=== PATIENT | male | born 1960 | race Caucasian/White ===

== ENCOUNTER 2020-07-31 14:02 | Inpatient (IN) | payer OTHER, SELFPAY ==
[~2020-07-31] VITALS: Ht 175.3 cm; Wt 93.0 kg
[2020-07-31 14:39] VITALS: BP 161/89
--- NOTE | 2020-07-31 15:04 | NUR ---
PT TAKEN TO BED 4 VIA W/C.
--- NOTE | 2020-07-31 15:15 | NUR ---
BIBS FROM HOME WITH C/O RIGHT FOOT PAIN, SWELLING, ERYTHEMA THAT PT FIRST NOTICED YESTERDAY. FSBS 444 MG/DL @ TRIAGE. NKDA, PMH ASTHMA, DM, DIABETIC NEUROPATHY, HTN, BIPOLAR. A, A, O X 4, COOPERATIVE, PATIENT DOES NOT WANT TO BE ADMITTED BECAUSE HE HAS A DOG AT HOME AND NO ONE TO CARE FOR HIM. RESP EVEN AND UNLABORED, IN NAD, VVS HOB ELEVATED, MOVING ALL EXTS W/O DIFFICULTY AWAITING EVALUATION/EXAM BY MD, WILL CONTINUE TO MONITOR
[2020-07-31 15:26] LABS: BASOPHILS % (AUTO) 0.4 % (0.0-2.0); EOSINOPHILS # (AUTO) 0.1 K/uL (0-0.4); EOSINOPHILS % (AUTO) 0.9 % (0.0-4.0); HEMATOCRIT 37.4 % (36-52); HEMOGLOBIN 12.6 g/dL (12.0-18.0); LYMPHOCYTES # (AUTO) 1.2 K/uL (2.0-11.5); LYMPHOCYTES % (AUTO) 10.3 % (20.5-51.1); MEAN CORPUSCULAR HEMOGLOBIN 29 pg (27-31); MEAN CORPUSCULAR HGB CONC 34 g/dL (33-37); MEAN CORPUSCULAR VOLUME 87.6 fL (80-94); MONOCYTES # (AUTO) 0.8 K/uL (0.8-1.0); NEUTROPHILS # (AUTO) 9.8 K/uL (1.8-7.7); NEUTROPHILS % (AUTO) 81.4 % (42.2-75.2); PLATELET COUNT (AUTO) 236 K/uL (140-450); RED BLOOD CELL COUNT(AUTO) 4.27 MIL/uL (4.20-6.10); RED CELL DISTRIBUTION WIDTH 13.6 % (11.6-13.7)
[2020-07-31 15:48] LABS: ALBUMIN 3.5 g/dL (3.4-5.0); ANION GAP 11.5 (8-16); CARBON DIOXIDE 29.1 mmol/L (21-32); CREATININE 1.1 mg/dL (0.6-1.3); POTASSIUM 4.6 mmol/L (3.5-5.1); TOTAL BILIRUBIN 0.4 mg/dL (0.0-1.0)
[2020-07-31] MEDS ORDERED: MORPHINE SULFATE 4 MG/ML SYR IVP ONE (17:15)
[2020-07-31] MEDS ORDERED: cefTRIAXone 1,000 MG in DEXT 5% MINI-BAG PLUS 50 ML IV ONE (17:15)
[2020-07-31] MEDS ORDERED: BUS5 PO (17:20)
[2020-07-31] MEDS ORDERED: cefTRIAXone 1,000 MG VIAL ONE ×2 (17:20→21:06)
[2020-07-31] MEDS ORDERED: LANTUS SUBQ (17:20)
[2020-07-31] MEDS ORDERED: METF1000 PO (17:20)
[2020-07-31] MEDS ORDERED: THO25 PO (17:21)
--- NOTE | 2020-07-31 19:30 | NUR ---
REPORT RECIEVED FROM AGENCY RN. TRANSFER OF CARE AT THIS TIME.
--- NOTE | 2020-07-31 19:31 | NUR ---
Detailed report given to IDRIS Cali for transfer of care Questions answered, orders and meds reviewed
--- NOTE | 2020-07-31 20:00 | NUR ---
FRITZ SWAB COLLECTED AND SENT TO LAB
[2020-07-31] MEDS ORDERED: MORPHINE SULFATE 4 MG/ML SYR IVP SCH (20:12)
[2020-07-31] MEDS ORDERED: MORPHINE SULFATE 4 MG/ML SYR ONE (20:13)
--- NOTE | 2020-07-31 20:15 | NUR ---
PT REQUESTING PAIN MEDICATIONS FOR 10/10 PAIN. RONNID MADE AWARE.
--- NOTE | 2020-07-31 20:20 | NUR ---
PT PROVIDED WITH SANWHICH, JELLO, AND WATER AFTER FOOD TRAY WAS NOT DELIVERED. PT POSITIONED FOR COMFORT. ALL PT NEEDS MET AT THIS TIME.
--- NOTE | 2020-07-31 20:30 | NUR ---
PTS PAIN DECREASED TO 2/10 POST IVP OF MORPHINE
[2020-07-31] MEDS ORDERED: ACETAMINOPHEN 325 MG TAB PO PRN (20:40)
[2020-07-31] MEDS ORDERED: POTASSIUM CHLORIDE 10 MEQ TABER PO PRN (20:40)
[2020-07-31] MEDS ORDERED: ZOLPIDEM 5 MG TAB PO PRN (20:40)
[2020-07-31] MEDS ORDERED: DEXTROSE 50% 50 ML SYR IVP PRN (20:40)
[2020-07-31] MEDS ORDERED: ONDANSETRON 4 MG/2 ML VIAL IVP PRN (20:40)
[2020-07-31] MEDS ORDERED: LORazepam 1 MG TAB PO PRN (20:40)
[2020-07-31] MEDS ORDERED: MAGNESIUM OXIDE 400 MG TAB PO PRN (20:40)
[2020-07-31] MEDS ORDERED: HYDROcodone/APAP 5/325 MG 1 TAB TAB PO PRN (20:40)
[2020-07-31] MEDS ORDERED: MAG SULF 2000 MG/WATER PREMIX 50 ML IV PRN (20:40)
[2020-07-31] MEDS ORDERED: KCL 20 MEQ/WATER INJ PREMIX 200 ML IV PRN (20:40)
[2020-07-31] MEDS ORDERED: INSULIN LANTUS 100 UNITS/ML 10 ML VIAL SUBQ SCH (21:00)
[2020-07-31] MEDS: BLOOD GLUCOSE MONITORING 1 DEV DEV FS SCH (21:00)
[2020-07-31] MEDS ORDERED: chlorproMAZINE 25 MG TAB PO SCH (21:00)
--- NOTE | 2020-07-31 21:00 | NUR ---
PT RESTING IN BED. EQUAL CHEST RISE AND FALL. BED LOCKED AND IN LOWEST POSITION. PULSE OX IN PLACE. URINAL AND CALL LIGHT AT BEDSIDE
[2020-07-31] MEDS: POTASSIUM CHL 40 MEQ/ D5-1/2NS 1,000 ML IV SCH (21:26)
[2020-07-31] MEDS: metroNIDAZOLE 500 MG/NS PREMIX 100 ML IV SCH (21:35)
--- NOTE | 2020-07-31 21:48 | NUR ---
called to give report to duy wayne. She asked me to call back in 10 min due to being in an isolation room
--- NOTE | 2020-07-31 22:20 | NUR ---
Johana miles in [facility] - 07/31/20 at 2238 by [email or web address] GAVE REPORT TO IDRIS OGDEN. TRANSFER OF CARE AT THIS TIME.
--- NOTE | 2020-07-31 22:20 | NUR ---
GAVE REPORT TO IDRIS OGDEN ON PHONE
--- NOTE | 2020-07-31 22:30 | NUR ---
Patient will be admitted to [facility]. Admited to [facility]. Will go to room 104A. Belongings list completed. Report to IDRIS OGDEN.
[2020-07-31 22:40] VITALS: BP 97/64
--- NOTE | 2020-07-31 22:40 | NUR ---
RECEIVED REPORT OVER THE PHONE FROM IDRIS LOZOYA IN ED DEPARTMENT. PT ARRIVED TO THE UNIT VIA GURNEY. PT IS AMBULATORY WITH A CANE. ALERT AND AWAKE, A&OX4. SPEAKING APPROPRIATELY, NO SIGNS OF DISTRESS. BREATHING IS UNLABORED. CHEST RISE AND FALL IS SYMMETRICAL. ON RA. PT IS ON MED-SURG. URINAL IS AT BEDSIDE. PT SKIN IS WARM AND DRY. SKIN IS NOT INTACT, RIGHT FOOT ULCER. LAST BM WAS ON 07/30/2020 STATED BY PT. IV IS IN THE LEFT FOREARM 20 GAUGE RUNNING POTASSIUM CHLORIDE WITH D5 HALF NS AT 80 ML PER HOUR PER ORDER. PT IS STABLE AT THIS TIME. PLAN OF CARE DISCUSSED. BED IN LOWEST POSITION AND CALL LIGHT WITHIN REACH.
[2020-07-31] MEDS ORDERED: VANCOMYCIN PER PHARMACY MC PRN (23:00)
--- NOTE | 2020-07-31 23:00 | NUR ---
PT REFUSED TO PUT ON GOWN AND SOCKS. FALL RISK BAND WAS PLACED ON PT AND SIGN WAS PLACED ON THE DOOR. CANE IS WITHIN REACH TO ACCESS EASILY.
[2020-07-31] MEDS: INSULIN LISPRO SLIDING SCALE 100 UNITS/ML VIAL SUBQ PRN (23:02)
--- NOTE | 2020-07-31 23:02 | NUR ---
PT'S BS WAS 327. 8 UNITS OF HUMALOG INSULIN WAS GIVEN PER SLIDING SCALE SUB Q. PT MEDICATION EDUCATION WAS GIVEN AND PT VERBALIZED UNDERSTANDING.
[2020-07-31] MEDS ORDERED: VANCOMYCIN 1,500 MG in DEXTROSE 5% 500 ML IV SCH (23:05)
[2020-07-31] MEDS ORDERED: VANCOMYCIN 500 MG VIAL ONE (23:52)
--- NOTE | 2020-08-01 01:00 | NUR ---
PT IS ASLEEP. CHEST RISE AND FALL IS SYMMETRICAL. NO DISTRESS NOTED. NO PAIN NOTED AT THIS TIME. BED IS IN THE LOWEST POSITION AND CANE IS WITHIN REACH. WILL CONTINUE TO MONITOR.
--- NOTE | 2020-08-01 03:00 | NUR ---
ROUNDED ON PT. HE IS AWAKE AND TALKATIVE. ASKED PT IF I COULD PUT ON GOWN AND SOCKS AGAIN. PT REFUSED AND SAID HE IS MORE COMFORTABLE IN HIS OWN CLOTHES. NO DISTRESS AT THIS TIME. PT IS STABLE. BEDSIDE TABLE WITHIN REACH.
--- NOTE | 2020-08-01 03:42 | NUR ---
PT COMPLAINED OF PAIN IN HIS RIGHT FOOT WHERE THE ULCER IS LOCATED. STATED THE PAIN WAS AN ACHING PAIN. PT WAS GIVEN NORCO FOR PAIN. WILL CONTINUE TO MONITOR PAIN.
[2020-08-01 04:00] VITALS: BP 113/58
[2020-08-01] MEDS: metroNIDAZOLE 500 MG/NS PREMIX 100 ML IV SCH (05:52)
[2020-08-01] MEDS: BLOOD GLUCOSE MONITORING 1 DEV DEV FS SCH (05:59)
[2020-08-01] MEDS: INSULIN LISPRO SLIDING SCALE 100 UNITS/ML VIAL SUBQ PRN (06:00)
--- NOTE | 2020-08-01 06:00 | NUR ---
PT'S BS WAS 223 AND 4 UNITS OF HUMALOG INSULIN WAS GIVEN PER SLIDING SCALE. EDUCATION WAS GIVEN ON S/SX OF HYPOGLYCEMIA. PT VERBALIZED UNDERSTANDING. PT IS STABLE AT THIS TIME.
[2020-08-01 06:55] LABS: BASOPHILS # (AUTO) 0.1 K/uL (0.00-0.22); BASOPHILS % (AUTO) 0.6 % (0.0-2.0); EOSINOPHILS # (AUTO) 0.2 K/uL (0-0.4); EOSINOPHILS % (AUTO) 1.5 % (0.0-4.0); HEMATOCRIT 33.1 % (36-52); HEMOGLOBIN 11.4 g/dL (12.0-18.0); LYMPHOCYTES # (AUTO) 2.1 K/uL (2.0-11.5); LYMPHOCYTES % (AUTO) 19.8 % (20.5-51.1); MEAN CORPUSCULAR HEMOGLOBIN 30 pg (27-31); MEAN CORPUSCULAR HGB CONC 35 g/dL (33-37); MONOCYTES # (AUTO) 0.9 K/uL (0.8-1.0); MONOCYTES % (AUTO) 8.8 % (1.7-9.3); NEUTROPHILS # (AUTO) 7.2 K/uL (1.8-7.7); NEUTROPHILS % (AUTO) 69.3 % (42.2-75.2); PLATELET COUNT (AUTO) 227 K/uL (140-450); RED CELL DISTRIBUTION WIDTH 13.4 % (11.6-13.7); WHITE BLOOD COUNT (AUTO) 10.4 K/uL (4.8-10.8)
--- NOTE | 2020-08-01 07:10 | NUR ---
ENDORSED PT TO DAY SHIFT NURSE FOR CONTINUITY OF CARE. PT IS AWAKE AND ALERT. BEING TAKEN TO THE LAST PHASE OF THE BONE SCAN VIA WHEELCHAIR. NO DISTRESS NOTED. PLAN OF CARE DISCUSSED.
--- NOTE | 2020-08-01 07:20 | NUR ---
RECEIVED REPORT FROM NIGHT NURSE FOR CONTINUITY OF CARE, PT IS STABLE, PT HAS LEFT FA 20G SALINE LOCK. PT GOING TO HAVE PROCEDURE DONE, PT OFF UNIT, WILL CONTINUE TO MONITOR
[2020-08-01 08:17] LABS: ALBUMIN 2.7 g/dL (3.4-5.0); ANION GAP 11.7 (8-16); CARBON DIOXIDE 25.9 mmol/L (21-32); CHOL/HDL RATIO 3.7 (1-4.5); CREATININE 0.8 mg/dL (0.6-1.3); MAGNESIUM 1.6 mg/dL (1.8-2.4); PHOSPHORUS 2.8 mg/dL (2.5-4.9); POTASSIUM 3.6 mmol/L (3.5-5.1); TOTAL BILIRUBIN 0.4 mg/dL (0.0-1.0)
[2020-08-01] MEDS ORDERED: DOCUSATE SODIUM 100 MG GELCAP PO SCH (09:00)
[2020-08-01] MEDS ORDERED: busPIRone 5 MG TAB PO SCH (09:00)
[2020-08-01] MEDS: POTASSIUM CHL 40 MEQ/ D5-1/2NS 1,000 ML IV SCH (09:10)
--- NOTE | 2020-08-01 09:47 | NUR ---
ADMINISTERED SCHEDULED MEDICATION, MEDICATION EDUCATION PROVIDED, PT VERBALIZED UNDERSTANDING, PT TOLERATED WELL, PT IS ADAMANT HE IS LEAVING THE HOSPITAL AGAINST MEDICAL ADVICE AND DOES NOT WANT TO SIGN FORM.
--- NOTE | 2020-08-01 09:55 | NUR ---
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 PT WANTS TO SMOKE AND EXPLAINED TO PT THE RISK AND BENEFITS OF SMOKING AND HOSPITALS POLICY. PT WANTS TO LEAVE THE HOSPITAL. PT REFUSES TO SIGNS AMA FORM. PT WANTS IV REMOVED, IV REMOVED. PT WHEELED OUT TO THE LOBBY. PT IS STABLE.
[2020-08-01] MEDS ORDERED: CLINDAMYCIN 150 MG CAP PO SCH (12:00)
[2020-08-01] MEDS ORDERED: VANCOMYCIN 1,500 MG in DEXTROSE 5% 500 ML IV SCH (12:00)
[2020-08-02] MEDS ORDERED: levoFLOXacin 250 MG TAB PO SCH (09:00)
--- NOTE | 2020-08-03 10:48 | NUR ---
Wound consult not done, pt. disacharged
== END 2020-08-01 09:55 | disposition left against medical advice (07) | DRG 344 ==
LOC: MED 14:02 → MMU 18:29 → MTU 22:12
PROVIDERS: ADMIT Hospitalist; ATTEND Hospitalist
DX: E11.69 Type 2 diabetes mellitus with other specified complication (principal); Z20.828 Contact with and (suspected) exposure to other viral communicable diseases; J45.909 Unspecified asthma, uncomplicated; K21.9 Gastro-esophageal reflux disease without esophagitis; I10 Essential (primary) hypertension; F31.9 Bipolar disorder, unspecified; E11.40 Type 2 diabetes mellitus with diabetic neuropathy, unspecified; Z90.49 Acquired absence of other specified parts of digestive tract; F17.210 Nicotine dependence, cigarettes, uncomplicated; E78.5 Hyperlipidemia, unspecified; M86.9 Osteomyelitis, unspecified; M72.6 Necrotizing fasciitis
CPT/HCPCS: 36415; 71045; 73630; 78300; 80053; 82948; 83036; 83605; 83690; 83735; 84100; 84484; 85025; 87040; 87081; 93005; 96365; 96375; 96376; 99285; J0696; J1815; J2270; J3370; J3490; J7060

== ENCOUNTER 2022-06-29 22:24 | Emergency (ER) | payer OTHER ==
[~2022-06-29] VITALS: Ht 175.3 cm; Wt 104.3 kg
[~2022-06-29 22:24] MED LIST: BUS5 PO; LANTUS SUBQ; METF-1274 PO; THO25 PO
[2022-06-29 22:33] VITALS: BP 180/84
--- NOTE | 2022-06-29 22:37 | NUR ---
BIB WC C/O SOB X2 WEEKS AND TESTICULAR SWELLING. +HORNER. DENIES CP. PT ALSO STATES POSSIBLE SYNCOPAL EPISODES AFTER AMBULATING. PMH HTN, DM, GERD, PERIPHERAL NEUROPATHY, RIGHT TOE AMPUTATION, +CURRENT 1 PACK/WEEK SMOKER.
--- NOTE | 2022-06-29 22:40 | NUR ---
REPORT GIVEN TO RYDER STEINBERG
--- NOTE | 2022-06-29 22:41 | NUR ---
Patient taken to bed 11.
--- NOTE | 2022-06-29 22:42 | NUR ---
Dr. Murcia examining patient.
--- NOTE | 2022-06-29 22:43 | NUR ---
DR. DE LOS SANTOS NOTIFIED OF SEPSIS ALERT
[2022-06-29 23:00] LABS: BASOPHILS # (AUTO) 0.1 K/uL (0.00-0.22); BASOPHILS % (AUTO) 0.8 % (0.0-2.0); EOSINOPHILS # (AUTO) 0.1 K/uL (0-0.4); EOSINOPHILS % (AUTO) 1.2 % (0.0-4.0); HEMATOCRIT 30.5 % (36-52); HEMOGLOBIN 10.2 g/dL (12.0-18.0); LYMPHOCYTES # (AUTO) 1.4 K/uL (2.0-11.5); LYMPHOCYTES % (AUTO) 15.5 % (20.5-51.1); MEAN CORPUSCULAR HEMOGLOBIN 30 pg (27-31); MEAN CORPUSCULAR HGB CONC 34 g/dL (33-37); MEAN CORPUSCULAR VOLUME 88.6 fL (80-94); MONOCYTES # (AUTO) 0.5 K/uL (0.8-1.0); MONOCYTES % (AUTO) 6.1 % (1.7-9.3); NEUTROPHILS # (AUTO) 6.8 K/uL (1.8-7.7); NEUTROPHILS % (AUTO) 76.4 % (42.2-75.2); PLATELET COUNT (AUTO) 247 K/uL (140-450); RED BLOOD CELL COUNT(AUTO) 3.44 MIL/uL (4.20-6.10); RED CELL DISTRIBUTION WIDTH 15.2 % (11.6-13.7); WHITE BLOOD COUNT (AUTO) 8.9 K/uL (4.8-10.8)
[2022-06-29 23:16] LABS: ALBUMIN 2.9 g/dL (3.4-5.0); ANION GAP 13.3 (8-16); CARBON DIOXIDE 24.9 mmol/L (21-32); CREATININE 1.5 mg/dL (0.6-1.3); POTASSIUM 4.2 mmol/L (3.5-5.1); TOTAL BILIRUBIN 0.5 mg/dL (0.0-1.0)
[2022-06-29] MEDS ORDERED: FUROSEMIDE 40 MG/4 ML VIAL IVP ONE (23:25)
[2022-06-29] MEDS ORDERED: ALBUTEROL SULFATE/IPRATROPIU 3 ML SOL IH ONE (23:25)
[2022-06-29] MEDS ORDERED: methylPREDNISolone SS 125 MG/2 ML VIAL IVP ONE (23:25)
[2022-06-29 23:31] VITALS: BP 127/77
--- NOTE | 2022-06-30 00:11 | NUR ---
RT at bedside for breathing treatment.
[2022-06-30] MEDS ORDERED: FURO-571 PO (01:20)
[2022-06-30] MEDS ORDERED: methylPREDNISolone SS 125 MG/2 ML VIAL IM ONE (01:20)
[2022-06-30] MEDS ORDERED: ALBU0.0912 INH (01:20)
[2022-06-30] MEDS ORDERED: PRED20TA5 PO (01:20)
[2022-06-30] MEDS ORDERED: FUROSEMIDE 40 MG TAB PO ONE (01:20)
--- NOTE | 2022-06-30 01:31 | NUR ---
Patient does not wish to proceed with medical care recommended by . Patient given information related to possible complications, up to and including , which could occur as a result of leaving hospital at this time. Patient verbalizes understanding of risks involved leaving against medical advice. Patient has signed AMA form.
[2022-07-04] MEDS ORDERED: LISI5TAB24 PO (13:30)
[2022-07-04] MEDS ORDERED: CARV3.122 PO (13:30)
[2022-07-04] MEDS ORDERED: ASPI81CT95 PO (13:30)
[2022-07-04] MEDS ORDERED: FURO-570 PO (13:30)
[2022-07-04] MEDS ORDERED: SPIR25TA PO (13:30)
== END 2022-06-30 01:31 | disposition left against medical advice (07) ==
LOC: MED 22:24
DX: J44.9 Chronic obstructive pulmonary disease, unspecified (principal); I50.9 Heart failure, unspecified; E11.9 Type 2 diabetes mellitus without complications; I11.0 Hypertensive heart disease with heart failure; K21.9 Gastro-esophageal reflux disease without esophagitis; Z79.4 Long term (current) use of insulin; Z79.899 Other long term (current) drug therapy
CPT/HCPCS: 36415; 71045; 80053; 83880; 84484; 85025; 93005; 96372; 99285; J2930; Q0092

== ENCOUNTER 2022-09-23 09:27 | Inpatient (IN) | payer OTHER ==
[~2022-09-23] VITALS: Ht 177.8 cm; Wt 97.1 kg
[~2022-09-23 09:27] MED LIST changes: +ALBU0.0912 INH; +ASPI81CT95 PO; +CARV3.122 PO; +FURO-570 PO; +LISI5TAB24 PO; +SPIR25TA PO
--- NOTE | 2022-09-23 09:28 | NUR ---
PATIENT BIBA TO BED 10.
--- NOTE | 2022-09-23 09:28 | NUR ---
DR. MYERS EVALUATING PATIENT AT BEDSIDE.
--- NOTE | 2022-09-23 09:30 | NUR ---
62/M BIBA FROM HOME C/O SOB WITH O2 @ 68% ON RA UPON EMS ARRIVAL TO PT'S HOME. PT PLACED ON 15L NRB AND WENT TO 79%. PT PLACED ON CPAP SENIOR SHIPPING CLERK AND NOW SATTING 85% ON TRIAGE. RT AT BEDSIDE FOR BIPAP PLACEMENT ORDERED BY DR MYERS. LUCIA AT BEDSIDE, ON BAR SUPERVISOR, IV ESTABLISHED TO LEFT AC. PT AAO4. NKA PMH: CHF, GANGRENE LEFT FOOT
[2022-09-23 09:37] VITALS: BP 164/95
[2022-09-23] MEDS ORDERED: cefTRIAXone 1,000 MG in DEXT 5% MINI-BAG PLUS 50 ML IV ONE (09:45)
[2022-09-23] MEDS ORDERED: FUROSEMIDE 40 MG/4 ML VIAL IVP ONE (09:45)
[2022-09-23] MEDS ORDERED: fentaNYL citrate 0.05 MG/ML VIAL IVP ONE (09:50)
[2022-09-23] MEDS ORDERED: cefTRIAXone 1,000 MG VIAL ONE (09:56)
[2022-09-23 10:04] LABS: BASOPHILS # (AUTO) 0.2 K/uL (0.00-0.22); BASOPHILS % (AUTO) 1.2 % (0.0-2.0); EOSINOPHILS # (AUTO) 0.2 K/uL (0-0.4); EOSINOPHILS % (AUTO) 1.1 % (0.0-4.0); HEMATOCRIT 27.9 % (36-52); HEMOGLOBIN 8.9 g/dL (12.0-18.0); LYMPHOCYTES # (AUTO) 1.5 K/uL (2.0-11.5); LYMPHOCYTES % (AUTO) 7.6 % (20.5-51.1); MEAN CORPUSCULAR HEMOGLOBIN 27 pg (27-31); MEAN CORPUSCULAR HGB CONC 32 g/dL (33-37); MEAN CORPUSCULAR VOLUME 84.4 fL (80-94); MONOCYTES % (AUTO) 5.2 % (1.7-9.3); NEUTROPHILS # (AUTO) 17.1 K/uL (1.8-7.7); NEUTROPHILS % (AUTO) 84.9 % (42.2-75.2); PLATELET COUNT (AUTO) 258 K/uL (140-450); RED BLOOD CELL COUNT(AUTO) 3.31 MIL/uL (4.20-6.10); RED CELL DISTRIBUTION WIDTH 17.3 % (11.6-13.7); WHITE BLOOD COUNT (AUTO) 20.1 K/uL (4.8-10.8)
--- NOTE | 2022-09-23 10:22 | NUR ---
GISSELLE AND FLU SWAB COLLECTED AND SENT TO LAB
[2022-09-23 10:37] LABS: ALBUMIN 2.7 g/dL (3.4-5.0); ANION GAP 16.4 (8-16); CARBON DIOXIDE 22.9 mmol/L (21-32); CREATININE 1.4 mg/dL (0.6-1.3); POTASSIUM 4.3 mmol/L (3.5-5.1); TOTAL BILIRUBIN 0.5 mg/dL (0.0-1.0)
[2022-09-23] MEDS ORDERED: VANCOMYCIN PER PHARMACY MC PRN (12:30)
[2022-09-23] MEDS ORDERED: VANCOMYCIN 1GM/DEXT 5% PREMIX 200 ML IV ONE (12:30)
[2022-09-23] MEDS ORDERED: VANCOMYCIN 1,000 MG VIAL ONE (12:37)
[2022-09-23] MEDS ORDERED: VANCOMYCIN 1,000 MG in DEXTROSE 5% 250 ML IV ONE (12:40)
--- NOTE | 2022-09-23 12:58 | NUR ---
PATIENT DENIES ANY MED USE. STATES NOT COMPLIANT WITH ANY MEDS
[2022-09-23] MEDS ORDERED: MORPHINE SULFATE 4 MG/ML SYR IVP ONE (13:05)
[2022-09-23] MEDS ORDERED: ASPIRIN 325 MG TAB PO ONE (14:00)
[2022-09-23] MEDS ORDERED: ASPIRIN 325 MG TAB ONE (14:03)
[2022-09-23] MEDS ORDERED: LORazepam 2 MG/ML VIAL IVP PRN (15:10)
[2022-09-23] MEDS ORDERED: ACETAMINOPHEN 325 MG TAB PO PRN (15:10)
[2022-09-23] MEDS ORDERED: ONDANSETRON 4 MG/2 ML VIAL IVP PRN (15:10)
[2022-09-23] MEDS ORDERED: AZITHROMYCIN 500 MG INJ VIAL IV ONE ×2 (16:12→16:31)
--- NOTE | 2022-09-23 16:13 | NUR ---
[facility] OUT OF STOCK IN THE MEDICAL [facility]ENTER. NOTIFIED PHARMACY
[2022-09-23] MEDS: AZITHROMYCIN 500 MG in DEXTROSE 5% 250 ML IV SCH (16:40)
--- NOTE | 2022-09-23 16:43 | NUR ---
PT CALM AND RESTING. PAGED RT FOR NC PLACEMENT. WILL MONITOR TOLERANCE
--- NOTE | 2022-09-23 16:48 | NUR ---
REMOVED PATIENT FROM BIPAP AT APPROXIMATELY 1648 AND PLACED ON 2LPM VIA NASAL CANNULA.
--- NOTE | 2022-09-23 18:53 | NUR ---
PATIENT PROVIDED WITH MEAL
--- NOTE | 2022-09-23 19:19 | NUR ---
GAVE REPORT TO RYDER STEINBERG
--- NOTE | 2022-09-23 19:47 | NUR ---
1939 PATIENT IS OFF BIPAP AT THIS TIME. PT IS ON 2LNC.SATS 100%. BREATH SOUNDS ARE CLEAR. NO SOB NOTED. BIPAP MACHINE ON STBY
--- NOTE | 2022-09-23 19:50 | NUR ---
Patient A/Ox4, chest rise and fall symmetrical, lying in bed, no s/s of distress, on monitor.
[2022-09-23] MEDS: FUROSEMIDE 40 MG/4 ML VIAL IVP SCH (21:28)
--- NOTE | 2022-09-23 21:44 | NUR ---
Patient urinated 1,100 mL/yellow clear.
--- NOTE | 2022-09-23 21:44 | NUR ---
Patient A/Ox4, chest rise and fall symmetrical, lying in bed, no s/s of distress, on monitor.
--- NOTE | 2022-09-23 21:45 | NUR ---
Dr. Chaney paged at [phone], to request sliding scale order.
--- NOTE | 2022-09-23 21:49 | NUR ---
Verbal order received from Dr. Chaney for regular sliding scale for patient, readback confirmed.
[2022-09-23] MEDS ORDERED: INSULIN LISPRO SLIDING SCALE 100 UNITS/ML VIAL SUBQ PRN (21:50)
[2022-09-23] MEDS ORDERED: DEXTROSE 50% 50 ML SYR IVP PRN ×2 (21:50→22:20)
[2022-09-23] MEDS: BLOOD GLUCOSE MONITORING 1 DEV DEV FS SCH (22:25)
[2022-09-23] MEDS: INSULIN LISPRO SLIDING SCALE 100 UNITS/ML VIAL SUBQ PRN (22:35)
--- NOTE | 2022-09-23 23:30 | NUR ---
Patient A/Ox4, chest rise and fall symmetrical, lying in bed, no s/s of distress, on monitor.
--- NOTE | 2022-09-24 01:05 | NUR ---
Patient A/Ox4, chest rise and fall symmetrical, lying in bed, no s/s of distress, on monitor.
[2022-09-24] MEDS: MORPHINE SULFATE 2 MG/ML SYR IVP PRN ×4 (03:08→20:42)
--- NOTE | 2022-09-24 03:21 | NUR ---
Patient A/Ox4, chest rise and fall symmetrical, lying in bed, no s/s of distress, on monitor.
--- NOTE | 2022-09-24 05:00 | NUR ---
Patient A/Ox4, chest rise and fall symmetrical, lying in bed, no s/s of distress, on monitor.
[2022-09-24 06:54] LABS: BASOPHILS # (AUTO) 0.1 K/uL (0.00-0.22); BASOPHILS % (AUTO) 0.7 % (0.0-2.0); EOSINOPHILS # (AUTO) 0.3 K/uL (0-0.4); EOSINOPHILS % (AUTO) 2.1 % (0.0-4.0); HEMATOCRIT 25.7 % (36-52); HEMOGLOBIN 8.5 g/dL (12.0-18.0); LYMPHOCYTES % (AUTO) 13.7 % (20.5-51.1); MEAN CORPUSCULAR HEMOGLOBIN 28 pg (27-31); MEAN CORPUSCULAR HGB CONC 33 g/dL (33-37); MEAN CORPUSCULAR VOLUME 82.8 fL (80-94); MONOCYTES # (AUTO) 0.8 K/uL (0.8-1.0); MONOCYTES % (AUTO) 5.7 % (1.7-9.3); NEUTROPHILS # (AUTO) 11.4 K/uL (1.8-7.7); NEUTROPHILS % (AUTO) 77.8 % (42.2-75.2); PLATELET COUNT (AUTO) 182 K/uL (140-450); RED BLOOD CELL COUNT(AUTO) 3.11 MIL/uL (4.20-6.10); RED CELL DISTRIBUTION WIDTH 17.5 % (11.6-13.7); WHITE BLOOD COUNT (AUTO) 14.7 K/uL (4.8-10.8)
--- NOTE | 2022-09-24 07:00 | NUR ---
Patient A/Ox4, chest rise and fall symmetrical, lying in bed, no s/s of distress, on monitor.
--- NOTE | 2022-09-24 07:15 | NUR ---
Report given to AM shift nurse Elysia RN. AM shift nurse Elysia RN verbalized understanding of report, no further questions.
[2022-09-24] MEDS ORDERED: BLOOD GLUCOSE MONITORING 1 DEV DEV FS SCH (07:30)
[2022-09-24] MEDS: BLOOD GLUCOSE MONITORING 1 DEV DEV FS SCH ×4 (07:45→20:59)
[2022-09-24] MEDS: INSULIN LISPRO SLIDING SCALE 100 UNITS/ML VIAL SUBQ PRN ×5 (07:50→20:56)
--- NOTE | 2022-09-24 07:55 | NUR ---
pt.transferred to ICU via strecther with cardiac monitoring,o2, and belongings. pt. transferred from stretcher to bed succesfully. pt handed off to and report given to nurse Simi in ICU for continuity of care.
--- NOTE | 2022-09-24 07:56 | NUR ---
received report from MIXING AND DISPENSING SUPERVISOR Elysia for continuity of care, patient is alert, oriented x4, on 2 L oxygen via NC,no signs of acute distress noted at this time, will continue to monitor.
[2022-09-24 08:00] VITALS: BP 128/80
[2022-09-24 08:01] LABS: ALBUMIN 2.6 g/dL (3.4-5.0); ANION GAP 10.6 (8-16); CARBON DIOXIDE 32.1 mmol/L (21-32); CREATININE 1.1 mg/dL (0.6-1.3); MAGNESIUM 1.6 mg/dL (1.8-2.4); POTASSIUM 4.7 mmol/L (3.5-5.1); TOTAL BILIRUBIN 0.5 mg/dL (0.0-1.0)
--- NOTE | 2022-09-24 08:10 | NUR ---
Admitted from , with chief complaint of SOB X3 WEEKS, RUN OUT LASIX, RIGHT FOOT WOUND , 62 y/o ,Male, Appropriate,DX OF ACUTE PULMONARY EDEMA. oriented to call light, bed, phone,television, bathroom, smoking policy, visiting hours, procedures, ID bracelet on. Belongings list checked.
[2022-09-24] MEDS: FUROSEMIDE 40 MG/4 ML VIAL IVP SCH ×2 (09:44→20:36)
[2022-09-24 10:00] VITALS: BP 128/80
[2022-09-24 12:00] VITALS: BP 128/80
--- NOTE | 2022-09-24 12:40 | NUR ---
INFORMED ATTENDING Xenia MARCELO MEDICATION RECONCILIATION NOTED RECONCILE YET.
[2022-09-24 14:00] VITALS: BP 128/80
[2022-09-24] MEDS: AZITHROMYCIN 500 MG in DEXTROSE 5% 250 ML IV SCH (15:16)
[2022-09-24] MEDS ORDERED: ALBUTEROL HFA MDI 90 MCG/ACTUATION 8 GM INH PRN (15:50)
[2022-09-24] MEDS ORDERED: HYDROcodone/APAP 5/325 MG 1 TAB TAB PO PRN (16:00)
--- NOTE | 2022-09-24 16:30 | NUR ---
PATIENT IV ACCESS LEAKING,REMOVED CATHETER INTACT. MULTIPLE NURSE TRIED TO INSERT IV UNSUCCESSFUL. CALLED ER NURSE ABLE TO PLACE AT LEFT FOREARM #20 WITH GOOD BLOOD RETURN, FLUSH WITH 10 CC OF NORMAL SALINE, TRANSPARENT DRESSING APPLIED. WRAPPED WITH KERLIX. IV ATB THERAPY RESTARTED. WILL MONITOR FOR INFILTRATION.
--- NOTE | 2022-09-24 17:42 | NUR ---
TRANSFER TO [facility]: TELEPHONE REPORT GIVEN TO GUERRERO CHARGE NURSE. ROOM ASSIGNMENT 106B. BELONGINGS CHECK AND PATIENT AGREED. ALL NEEDS METS, VITAL SIGN STABLE, AFEBRILE.
--- NOTE | 2022-09-24 17:43 | NUR ---
RECEIVED PATIENT FROM ICU
--- NOTE | 2022-09-24 19:10 | NUR ---
RECEIVED PT FROM MORNING SHIFT NURSE. PT IS AOX4, AMBULATORY WITH ASSIST. PT HAS 2L NC AND ON CARDIAC DIET. PT HAS IV ON LEFT AC GAUGE 20 RUNNING WITH NS AT TKO. PT DENIES PAIN AT THIS TIME. NO S/S OF RESPIRATORY DISTRESS NOTED. PT HAS SWOLLEN ON RIGHT ANKLE/PLANTAR. ALL SAFETY MEASURES IMPLEMENTED. BED IN LOW POSITION, BED WHEELS ON LOCK AND CALL LIGHT WITHIN REACH.
--- NOTE | 2022-09-24 19:29 | NUR ---
NOTIFIED DR. BURDICK REGARDING PT MAGNESIUM LEVEL OF 1.6. WILL WAIT FOR MD'S REPLY AND ORDER.
--- NOTE | 2022-09-24 19:34 | NUR ---
HEAVENLY SILVA MAG. SULFATE 2GM IV X1. ORDER WAS CARRIED OUT AND MADE.
[2022-09-24 20:00] VITALS: BP 113/69
--- NOTE | 2022-09-24 20:30 | NUR ---
PT SLEEPING COMFORTABLY W/ NO DISTRESS NOTED WILL CONTINUE TO MONITOR
[2022-09-24] MEDS: carvediloL 3.125 MG TAB PO SCH (20:36)
[2022-09-24] MEDS: FUROSEMIDE 40 MG TAB PO SCH (20:37)
--- NOTE | 2022-09-24 20:59 | NUR ---
ALL SCHEDULED AND PRESCRIBED MEDICATION WAS GIVEN TO PT PER MD ORDER INCLUDING PRN PAIN MEDICATION WITH PAIN SCALE OF 6/10 . ALL SAFETY MEASURES IMPLEMENTED. BED IN LOW POSITION, BED WHEELS ON LOCK AND CALL LIGHT WITHIN REACH.
[2022-09-24] MEDS ORDERED: chlorproMAZINE 25 MG TAB PO SCH (21:00)
[2022-09-24] MEDS ORDERED: INSULIN LANTUS 100 UNITS/ML 10 ML VIAL SUBQ SCH (21:00)
[2022-09-24] MEDS ORDERED: MAG SULF 2000 MG/WATER PREMIX 50 ML IV SCH (23:25)
--- NOTE | 2022-09-24 23:25 | NUR ---
NOTIFIED DR. BURDICK DUE TO PT WANTS SLEEPING MEDICATION. DR. BURDICK ORDER MELATONIN 3MG. ORDER WAS MADE AND CARRIED OUT.
[2022-09-24] MEDS ORDERED: MELATONIN 3 MG TAB PO PRN (23:35)
[2022-09-25] VITALS: BP 132/78
--- NOTE | 2022-09-25 02:00 | NUR ---
PT IS SLEEPING. CHEST RISE AND FALL SYMMETRICALLY NOTED. RESPIRATION IS EVEN AND UNLABORED. ALL SAFETY MEASURES IMPLEMENTED. BED IN LOW POSITION, BED WHEELS ON LOCK AND CALL LIGHT WITHIN REACH.
[2022-09-25 04:00] VITALS: BP 99/58
--- NOTE | 2022-09-25 04:00 | NUR ---
CRACKERS WAS GIVEN TO PT PER REQUEST. NO COMPLAIN OF PAIN AT THIS TIME. NO S/S OF RESPIRATORY DISTRESS NOTED. ALL SAFETY MEASURES IMPLEMENTED. BED IN LOW POSITION, BED WHEELS ON LOCK AND CALL LIGHT WITHIN REACH.
[2022-09-25] MEDS: BLOOD GLUCOSE MONITORING 1 DEV DEV FS SCH ×2 (06:42→12:01)
[2022-09-25] MEDS: INSULIN LISPRO SLIDING SCALE 100 UNITS/ML VIAL SUBQ PRN ×2 (06:43→12:04)
--- NOTE | 2022-09-25 06:43 | NUR ---
PT BLOOD GLUCOSE IS 325. HUMALOG INSULIN 8 UNITS WAS GIVEN TO PT PER MD ORDER.
--- NOTE | 2022-09-25 07:26 | NUR ---
PT IS STABLE. ENDORSED PT TO MORNING SHIFT NURSE FOR CONTINUITY OF CARE.
[2022-09-25 08:00] VITALS: BP 120/62
[2022-09-25] MEDS: FUROSEMIDE 40 MG/4 ML VIAL IVP SCH (08:45)
[2022-09-25] MEDS: FUROSEMIDE 40 MG TAB PO SCH (08:46)
[2022-09-25] MEDS: carvediloL 3.125 MG TAB PO SCH (08:46)
[2022-09-25] MEDS: MORPHINE SULFATE 2 MG/ML SYR IVP PRN (08:47)
--- NOTE | 2022-09-25 08:59 | NUR ---
PATIENT HAS BEEN SCREENED AND CATEGORIZED HIGH NUTRITION RISK. PATIENT WILL BE SEEN WITHIN 1-2 DAYS OF ADMISSION. 09/23/22-09/25/[address] FNS CONSULT RECEIVED FOR WOUNDS/PRESSURE INJURY
[2022-09-25] MEDS ORDERED: busPIRone 5 MG TAB PO SCH (09:00)
[2022-09-25] MEDS ORDERED: ASPIRIN 81 MG TAB.CHEW PO SCH (09:00)
[2022-09-25] MEDS ORDERED: SPIRONOLACTONE 25 MG TAB PO SCH (09:00)
[2022-09-25] MEDS ORDERED: lisinopriL 5 MG TAB PO SCH (09:00)
[2022-09-25 12:00] VITALS: BP 118/58
[2022-09-25] MEDS ORDERED: FURO-570 PO (13:00)
[2022-09-25] MEDS ORDERED: LISI5TAB24 PO (13:00)
[2022-09-25] MEDS ORDERED: AMOX-1230 PO (13:00)
[2022-09-25] MEDS ORDERED: CARV3.122 PO (13:00)
[2022-09-25] MEDS ORDERED: ALBU0.0912 INH (13:00)
[2022-09-25] MEDS ORDERED: ASPI81CT95 PO (13:00)
[2022-09-25 14:09] VITALS: BP 120/61
--- NOTE | 2022-09-25 15:39 | NUR ---
PROVIDED DIABETES DIET AND CHF EDUCATION. PT VERBALIZED UNDERSTANDING.
--- NOTE | 2022-09-25 15:52 | NUR ---
patient discharged home. provided uber per patient's request to be drop off at the address patient provided. stable upon discharge.
--- NOTE | 2022-09-26 08:01 | NUR ---
WOUND CONSULT NOT DONE, PT. DISCHARGED.
== END 2022-09-25 15:58 | disposition home or self-care (01) | DRG 133 ==
LOC: MED 09:27 → MMU 15:08 → MIC 09-24 06:14 → MTU 09-24 17:42
PROVIDERS: ADMIT Hospitalist; ATTEND Hospitalist
PROC: 5A09357 Assistance with Respiratory Ventilation, Less than 24 Consecutive Hours, Continuous Positive Airway Pressure (ICD-10-PCS; principal; 2022-09-23)
DX: J96.01 Acute respiratory failure with hypoxia (principal); N17.0 Acute kidney failure with tubular necrosis; J81.0 Acute pulmonary edema; J15.9 Unspecified bacterial pneumonia; I11.0 Hypertensive heart disease with heart failure; E88.09 Other disorders of plasma-protein metabolism, not elsewhere classified; L97.519 Non-pressure chronic ulcer of other part of right foot with unspecified severity; I50.9 Heart failure, unspecified; E11.621 Type 2 diabetes mellitus with foot ulcer; D72.829 Elevated white blood cell count, unspecified; E78.5 Hyperlipidemia, unspecified; Z20.822 Contact with and (suspected) exposure to COVID-19; K21.9 Gastro-esophageal reflux disease without esophagitis; J45.909 Unspecified asthma, uncomplicated; J44.9 Chronic obstructive pulmonary disease, unspecified; Z79.82 Long term (current) use of aspirin; Z79.4 Long term (current) use of insulin; Z79.84 Long term (current) use of oral hypoglycemic drugs
CPT/HCPCS: 36415; 71045; 73610; 80053; 82948; 83605; 83735; 83880; 84484; 85025; 87040; 87081; 93005; 93971; 96365; 96366; 96367; 96375; 99291; J0456; J0696; J1644; J1815; J1940; J2270; J2405; J3010; J3370; J3475; J7060; Q0092